=== PATIENT | female | born 1955 | race African-American/Black ===

== ENCOUNTER 2019-09-19 11:48 | HOS | payer OTHER, SELFPAY ==
--- NOTE | 2019-09-19 11:40 | ADMGEN ---
This patient, Brenda Ortez, was admitted to Medical Room 341-01. Patient/family oriented to hospital policies and general routines including ID bracelet, bed and alarms, visiting hours, pain management, procedures, bathroom and other care routines, personal items, smoking policy, room service/diet, and visiting hours. Valuables list has been completed. Information on how to activate the Rapid Response Team has been discussed. Patient/Family are encouraged to report perceived risks to care and to ask questions if they do not understand what they are told or what they should do.
--- NOTE | 2019-09-19 12:05 | PM.IMHP ---
H&P: HPI History of Present Illness Chief complaint: Cerical Cancer Narrative: Brenda Ortez is a 63 year old female who is on hospice for metastatic cervical cancer. She was diagnosed with cervical cancer in 2016. Underwent surgical therapy at least twice. Also had a bowel resection for bowel obstruction related to prior surgeries. She has been at home on hospice receiving 16 mg of Dilaudid every hour as needed and 40 mg of morphine every hour as needed. She has a large presacral decubitus. She is weak and bedbound. Over the last several days her pain is begun uncontrolled intolerable. She was taking methadone 5mg every 8 hours, but has been unable to swallow that since yesterday. her morphine is liquid and the daughter has been crushing the dilaudid. Pain is deep, aching, severe, incapacitating. Review of Systems Review of Systems: ROS unobtainable: Yes unobtainable due to medical condition PMFSH Past Medical History Medical History (Updated 09/19/19 @ 12:24 by Manjit Dudley MD) Bone metastases Primary cervical cancer with metastasis to other site Surgical History Surgical History (Updated 09/19/19 @ 12:18 by Manjit Dudley MD) H/O exploratory laparotomy History of hysterectomy for cancer for bowel obstruction Family History Family History (Updated 09/19/19 @ 12:19 by Manjit Dudley MD) Father No problems noted. Mother No problems noted. Sibling Hypertension Social History Social History (Updated 09/19/19 @ 12:21 by Manjit Dudley MD) Social History: Resides with daughter. Additional smoking assessment comments: Nonsmoker Alcohol use details: Nondrinker Living arrangements: with family Occupation/Education: retired Exam Narrative: Exam Narrative: GENERAL: Cachectic elderly female who appears older than her stated age of 63. Crying out and fidgeting in her hospital bed. HEENT: Pupils small and sluggishly reactive, sclera nonicteric, pharyngeal mucosa pink and intact NECK: No JVD, adenopathy, or thyromegaly CHEST: Clear to auscultation. Tachypneic. HEART: NL S1/S2, regular, no murmur ABDOMEN: BS+, soft, nontender, scaphoid, no mass, no bruits EXTREMITIES: No cyanosis, edema, or clubbing NEUROLOGIC: CN intact and symmetric to inspection. MUSCULOSKELETAL: Tone and strength symmetric. PSYCH: Alert. Confused. Oriented to person. Assessment and Plan Assessment and plan (1) Palliative care by specialist: Code(s): Z51.5 - Encounter for palliative care Status: Acute Assessment and Plan: Requires general inpatient status due to failure of outpatient therapy Hydromorphone 4 mg hourly continuous IV infusion Hydromorphone 4 mg hourly as needed for breakthrough pain Toradol 30 mg IM x1 then 15 mg IV every 6 hours scheduled Dexamethasone 4 mg IV every 6 hours scheduled Lorazepam 1 mg IV Q 6 hours as needed for anxiety Prochlorperazine 10 mg IV q.6 hours p.r.n. nausea Glycopyrrolate 0.1 mg IV every 6 hours as needed for secretions Bowel regimen (2) Primary cervical cancer with metastasis to other site: Code(s): C53.9 - Malignant neoplasm of cervix uteri, unspecified Status: Acute (3) Bone metastases: Code(s): C79.51 - Secondary malignant neoplasm of bone Status: Acute (4) Decubital ulcer: Qualifiers: Pressure injury location: sacral region Pressure injury stage: unspecified pressure injury stage Qualified Code(s): L89.159 - Pressure ulcer of sacral region, unspecified stage Code(s): L89.90 - Pressure ulcer of unspecified site, unspecified stage Status: Acute Assessment and Plan: Mepilex silver gel Turn and reposition every 2 hours
[2019-09-19] MEDS: KETOROLAC 30 MG/ML VIAL (*BKC) IM (12:07)
[2019-09-19] MEDS: LORAZEPAM INJ 2 MG/ML VIAL 1 MG IV PUSH ×3 (12:25→21:45)
[2019-09-19 12:32] VITALS: BMI 14.2
[2019-09-19] MEDS: HYDROMORPHONE HCL 2 MG/ML VIAL 4 MG IV PUSH (12:56)
[2019-09-19 14:00] VITALS: BP 163/106; PULSE 92; RESP 12; TEMP 36.7; O2SAT 94
[2019-09-19] MEDS: HYDROMORPHONE HCL 2 MG/ML VIAL 6 MG IV PUSH ×2 (14:28→15:35)
[2019-09-19] MEDS: SILVERGEL (ELTA) 45 ML 1 APPLIC TOPICAL (14:30)
[2019-09-19] MEDS: HYDROMORPHONE HCL 1 MG/ML INJ 2 MG IV PUSH (15:56)
[2019-09-19] MEDS: KETOROLAC 15 MG/ML VIAL (*BKC) IV PUSH ×2 (17:32→23:27)
[2019-09-19] MEDS: DEXAMETHASONE SOD PHOS INJ 4 MG/ML VIAL IV PUSH ×2 (17:33→23:29)
[2019-09-19] MEDS: HYDROMORPHONE HCL 2 MG/ML VIAL 12 MG IV PUSH ×4 (18:45→23:27)
[2019-09-19 20:07] VITALS: BP 175/106; PULSE 96; RESP 16; TEMP 36.6; O2SAT 100
[2019-09-19 20:31] VITALS: PULSE 96; RESP 16; O2SAT 100
[2019-09-19] MEDS: PROCHLORPERAZINE EDISYLATE 10 MG/2 ML VIAL IV PUSH (21:45)
[2019-09-20] MEDS: HYDROMORPHONE HCL 2 MG/ML VIAL 12 MG IV PUSH ×6 (01:08→13:01)
[2019-09-20] MEDS: LORAZEPAM INJ 2 MG/ML VIAL 1 MG IV PUSH ×4 (02:29→19:01)
[2019-09-20] MEDS: KETOROLAC 15 MG/ML VIAL (*BKC) IV PUSH ×3 (04:59→17:22)
[2019-09-20] MEDS: DEXAMETHASONE SOD PHOS INJ 4 MG/ML VIAL IV PUSH ×3 (04:59→17:22)
[2019-09-20 09:34] VITALS: BP 175/103; PULSE 92; RESP 16; TEMP 36.4; O2SAT 100
--- NOTE | 2019-09-20 17:50 | PM.IMPN ---
Progress Note: A&P Assessment and Plan (1) Palliative care by specialist: Code(s): Z51.5 - Encounter for palliative care Status: Acute Assessment and Plan: Requires general inpatient status due to failure of outpatient therapy Hydromorphone 16 mg hourly continuous IV infusion Hydromorphone 16 mg hourly as needed for breakthrough pain Toradol 15 mg IV every 6 hours scheduled Dexamethasone 4 mg IV every 6 hours scheduled Lorazepam 1 mg IV Q 6 hours as needed for anxiety Prochlorperazine 10 mg IV q.6 hours p.r.n. nausea Glycopyrrolate 0.1 mg IV every 6 hours as needed for secretions Bowel regimen Plan to transition to liquid methadone, nsaid, steroid, and prn hydromorphone PO, but need to check with hospice pharmacy, re: compounding appropriate concentrations. Daily morphine equivalent is 7680mg, roughly equivalent to 256mg methadone. PO breakthrough hydromorphone dose will be 64mg. (2) Primary cervical cancer with metastasis to other site: Code(s): C53.9 - Malignant neoplasm of cervix uteri, unspecified Status: Acute (3) Bone metastases: Code(s): C79.51 - Secondary malignant neoplasm of bone Status: Acute (4) Decubital ulcer: Qualifiers: Pressure injury location: sacral region Pressure injury stage: unspecified pressure injury stage Qualified Code(s): L89.159 - Pressure ulcer of sacral region, unspecified stage Code(s): L89.90 - Pressure ulcer of unspecified site, unspecified stage Status: Acute Assessment and Plan: Mepilex silver gel Turn and reposition every 2 hours Subjective Date/time seen: 09/20/19 17:30 Interval history: Admitted 09/18 for pain control. Has metastatic cervical cancer. Pain 3 or below since hydromorphone drip was increased to 16mg/hr earlier today. Review of Systems Review of Systems: All systems reviewed & are unremarkable except as noted in HPI and below Exam Narrative: Exam Narrative: GENERAL: Cachectic elderly female who appears older than her stated age of 63. Crying out and fidgeting in her hospital bed. HEENT: Pupils small and sluggishly reactive, sclera nonicteric, pharyngeal mucosa pink and intact NECK: No JVD, adenopathy, or thyromegaly CHEST: Clear to auscultation. Tachypneic. HEART: NL S1/S2, regular, no murmur ABDOMEN: BS+, soft, nontender, scaphoid, no mass, no bruits EXTREMITIES: No cyanosis, edema, or clubbing NEUROLOGIC: CN intact and symmetric to inspection. MUSCULOSKELETAL: Tone and strength symmetric. PSYCH: Alert. Oriented to person, place, time. Objective Data Vital Signs Vital Signs: Vital Signs - 24 hr 09/19/19 20:07 09/19/19 20:31 09/20/19 09:34 Temperature 97.9 F 97.6 F Pulse Rate 96 96 92 Respiratory Rate 16 16 16 Blood Pressure 175/106 H 175/103 H Pulse Oximetry 100 100 100 Intake/Output Intake/Output: Intake & Output 09/17/19 09/18/19 09/19/19 09/20/19 23:59 23:59 23:59 23:59 Intake Total 100 565 Balance 100 565 Meds/Results Medications: Active Medications Generic Name Dose Route Start Last Admin Trade Name Freq PRN Reason Stop Dose Admin Acetaminophen 650 mg 09/19/19 12:06 Tylenol Suppository RECTAL Q6H PRN Mild Pain (1-3) or Fever Artificial Tears 1 drop 09/19/19 12:06 Artificial Tears EACH EYE Q4H PRN Dry Eye(s) Bisacodyl 10 mg 09/19/19 12:26 Dulcolax Suppository RECTAL QAM PRN Constipation Dexamethasone Sodium Phosphate 4 mg 09/19/19 18:00 09/20/19 17:22 Decadron 4 Mg/Ml Inj IV PUSH 4 mg Q6HR KOBY Administration Glycopyrrolate 0.1 mg 09/19/19 12:26 Robinul Inj IV PUSH Q6H PRN Secretions Hydromorphone HCl 16 mg 09/20/19 13:13 Dilaudid Inj IV PUSH Q1H PRN Pain Rated 7-10 Hydromorphone HCl 50 mg/ 100 mls @ 32 mls/hr 09/19/19 13:00 09/20/19 15:30 Sodium Chloride IV CONT 16 mg/hr .Q3H8M KOBY 32 mls/hr Administration 16 MG/HR
[2019-09-20] MEDS: HYDROMORPHONE HCL 2 MG/ML VIAL 16 MG IV PUSH ×3 (19:02→22:54)
[2019-09-20 22:45] VITALS: PULSE 90; RESP 17; O2SAT 99
[2019-09-20 22:50] VITALS: BP 158/97; PULSE 90; RESP 17; TEMP 36.3; O2SAT 99
[2019-09-21] MEDS: KETOROLAC 15 MG/ML VIAL (*BKC) IV PUSH ×5 (00:56→23:56)
[2019-09-21] MEDS: DEXAMETHASONE SOD PHOS INJ 4 MG/ML VIAL IV PUSH ×4 (00:56→20:38)
[2019-09-21] MEDS: LORAZEPAM INJ 2 MG/ML VIAL 1 MG IV PUSH ×3 (04:14→14:33)
[2019-09-21] MEDS: HYDROMORPHONE HCL 2 MG/ML VIAL 16 MG IV PUSH ×6 (04:15→18:53)
[2019-09-21 09:18] VITALS: O2SAT 99
[2019-09-21 14:37] VITALS: BP 169/75; PULSE 91; RESP 16; TEMP 36.8; O2SAT 99
--- NOTE | 2019-09-21 14:49 | P.PNIM_ITS ---
Progress Note: A&P Assessment and Plan (1) Palliative care by specialist: Code(s): Z51.5 - Encounter for palliative care Status: Acute Assessment and Plan: * Requires general inpatient status due to failure of outpatient therapy * Hydromorphone 16 mg hourly continuous IV infusion * Hydromorphone 16 mg hourly as needed for breakthrough pain * Toradol 15 mg IV every 6 hours scheduled * Dexamethasone 4 mg IV every 6 hours scheduled * Lorazepam 1 mg IV Q 6 hours as needed for anxiety * Prochlorperazine 10 mg IV q.6 hours p.r.n. nausea * Glycopyrrolate 0.1 mg IV every 6 hours as needed for secretions * Bowel regimen * Plan to transition to liquid methadone, nsaid, steroid, and prn hydromorphone PO * [facility] hosp[facility] pharmacy, will deliver meds by tomorrow PM. * Daily morphine equivalent is 7680mg, roughly equivalent to 256mg methadone. * Methadone will be 50:1 concentrate 80mg PO q 8 hours * PO breakthrough hydromorphone dose will be 50:1 concentrate 60mg q 2 hours prn * Ibuprofen 400mg/5ml 800mg q 8 hrs * Dexamethasone 4mg PO BID * Senna bid (2) Primary cervical cancer with metastasis to other site: Code(s): C53.9 - Malignant neoplasm of cervix uteri, unspecified Status: Acute (3) Bone metastases: Code(s): C79.51 - Secondary malignant neoplasm of bone Status: Acute (4) Decubital ulcer: Qualifiers: Pressure injury location: sacral region Pressure injury stage: unspecified pressure injury stage Qualified Code(s): L89.159 - Pressure ulcer of sacral region, unspecified stage Code(s): L89.90 - Pressure ulcer of unspecified site, unspecified stage Status: Acute Assessment and Plan: * Mepilex silver gel * Turn and reposition every 2 hours Subjective Date/time seen: 09/21/19 14:30 Interval history: Admitted 09/18 for pain control. Has metastatic cervical cancer. Pain 3 or below since hydromorphone drip was increased to 16mg/hr 09/19. Generalized, aching, musculoskeletal. Appetite improved. No GI upset. Constipated. Review of Systems Review of Systems: All systems reviewed & are unremarkable except as noted in HPI and below Exam Narrative: Exam Narrative: GENERAL: Cachectic elderly female who appears older than her stated age of 63. Crying out and fidgeting in her hospital bed. HEENT: Pupils small and sluggishly reactive, sclera nonicteric, pharyngeal mucosa pink and intact NECK: No JVD, adenopathy, or thyromegaly CHEST: Clear to auscultation. Tachypneic. HEART: NL S1/S2, regular, no murmur ABDOMEN: BS+, soft, nontender, scaphoid, no mass, no bruits EXTREMITIES: No cyanosis, edema, or clubbing NEUROLOGIC: CN intact and symmetric to inspection. MUSCULOSKELETAL: Tone and strength symmetric. PSYCH: Alert. Oriented to person, place, time. Objective Data Vital Signs Vital Signs: Vital Signs - 24 hr 09/20/19 22:45 09/20/19 22:50 09/21/19 09:18 Temperature 97.3 F L Pulse Rate 90 90 Respiratory Rate 17 17 Blood Pressure 158/97 H Pulse Oximetry 99 99 99 09/21/19 14:37 Temperature 98.2 F Pulse Rate 91 Respiratory Rate 16 Blood Pressure 169/75 H Pulse Oximetry 99 Intake/Output Intake/Output: Intake & Output 09/18/19 09/19/19 09/20/19 09/21/19 23:59 23:59 23:59 23:59 Intake Total 270 108 3614 Balance 883 543 4674
--- NOTE | 2019-09-21 14:49 | PM.IMPN ---
Progress Note: A&P Assessment and Plan (1) Palliative care by specialist: Code(s): Z51.5 - Encounter for palliative care Status: Acute Assessment and Plan: Requires general inpatient status due to failure of outpatient therapy Hydromorphone 16 mg hourly continuous IV infusion Hydromorphone 16 mg hourly as needed for breakthrough pain Toradol 15 mg IV every 6 hours scheduled Dexamethasone 4 mg IV every 6 hours scheduled Lorazepam 1 mg IV Q 6 hours as needed for anxiety Prochlorperazine 10 mg IV q.6 hours p.r.n. nausea Glycopyrrolate 0.1 mg IV every 6 hours as needed for secretions Bowel regimen Plan to transition to liquid methadone, nsaid, steroid, and prn hydromorphone PO [facility], hospice pharmacy, will deliver meds by tomorrow PM. Daily morphine equivalent is 7680mg, roughly equivalent to 256mg methadone. Methadone will be 50:1 concentrate 80mg PO q 8 hours PO breakthrough hydromorphone dose will be 50:1 concentrate 60mg q 2 hours prn Ibuprofen 400mg/5ml 800mg q 8 hrs Dexamethasone 4mg PO BID Senna bid (2) Primary cervical cancer with metastasis to other site: Code(s): C53.9 - Malignant neoplasm of cervix uteri, unspecified Status: Acute (3) Bone metastases: Code(s): C79.51 - Secondary malignant neoplasm of bone Status: Acute (4) Decubital ulcer: Qualifiers: Pressure injury location: sacral region Pressure injury stage: unspecified pressure injury stage Qualified Code(s): L89.159 - Pressure ulcer of sacral region, unspecified stage Code(s): L89.90 - Pressure ulcer of unspecified site, unspecified stage Status: Acute Assessment and Plan: Mepilex silver gel Turn and reposition every 2 hours Subjective Date/time seen: 09/21/19 14:30 Interval history: Admitted 09/18 for pain control. Has metastatic cervical cancer. Pain 3 or below since hydromorphone drip was increased to 16mg/hr 09/19. Generalized, aching, musculoskeletal. Appetite improved. No GI upset. Constipated. Review of Systems Review of Systems: All systems reviewed & are unremarkable except as noted in HPI and below Exam Narrative: Exam Narrative: GENERAL: Cachectic elderly female who appears older than her stated age of 63. Crying out and fidgeting in her hospital bed. HEENT: Pupils small and sluggishly reactive, sclera nonicteric, pharyngeal mucosa pink and intact NECK: No JVD, adenopathy, or thyromegaly CHEST: Clear to auscultation. Tachypneic. HEART: NL S1/S2, regular, no murmur ABDOMEN: BS+, soft, nontender, scaphoid, no mass, no bruits EXTREMITIES: No cyanosis, edema, or clubbing NEUROLOGIC: CN intact and symmetric to inspection. MUSCULOSKELETAL: Tone and strength symmetric. PSYCH: Alert. Oriented to person, place, time. Objective Data Vital Signs Vital Signs: Vital Signs - 24 hr 09/20/19 22:45 09/20/19 22:50 09/21/19 09:18 Temperature 97.3 F L Pulse Rate 90 90 Respiratory Rate 17 17 Blood Pressure 158/97 H Pulse Oximetry 99 99 99 09/21/19 14:37 Temperature 98.2 F Pulse Rate 91 Respiratory Rate 16 Blood Pressure 169/75 H Pulse Oximetry 99 Intake/Output Intake/Output: Intake & Output 09/18/19 09/19/19 09/20/19 09/21/19 23:59 23:59 23:59 23:59 Intake Total 115 299 3714 Balance 508 444 1608 Meds/Results Medications: Active Medications Generic Name Dose Route Start Last Admin Trade Name Freq PRN Reason Stop Dose Admin Acetaminophen 650 mg 09/19/19 12:06 Tylenol Suppository RECTAL Q6H PRN Mild Pain (1-3) or Fever Artificial Tears 1 drop 09/19/19 12:06 Artificial Tears EACH EYE Q4H PRN Dry Eye(s) Bisacodyl 10 mg 09/19/19 12:26 Dulcolax Suppository RECTAL QAM PRN Constipation Dexamethasone Sodium Phosphate 4 mg 09/19/19 18:00 09/21/19 12:40 Decadron 4 Mg/Ml Inj IV PUSH 4 mg Q6HR KOBY Administration Glycopyrrolate 0.1 mg 09/19/19 12:26 Robinul Inj I
[2019-09-21] MEDS: SENNOSIDES 8.8 MG/5 ML SYRUP PO (20:47)
[2019-09-21 20:53] VITALS: BP 166/79; PULSE 83; RESP 16; TEMP 36.6; O2SAT 98
[2019-09-22] MEDS: DEXAMETHASONE SOD PHOS INJ 4 MG/ML VIAL IV PUSH ×4 (00:01→17:23)
[2019-09-22] MEDS: HYDROMORPHONE HCL 2 MG/ML VIAL 16 MG IV PUSH ×9 (01:54→19:16)
[2019-09-22] MEDS: LORAZEPAM INJ 2 MG/ML VIAL 1 MG IV PUSH ×3 (05:58→13:57)
[2019-09-22] MEDS: KETOROLAC 15 MG/ML VIAL (*BKC) IV PUSH ×3 (06:00→17:23)
[2019-09-22 08:25] VITALS: O2SAT 98
[2019-09-22] MEDS: SENNOSIDES 8.8 MG/5 ML SYRUP PO ×2 (09:21→17:23)
--- NOTE | 2019-09-22 13:49 | P.PNIM_ITS ---
Progress Note: A&P Assessment and Plan (1) Palliative care by specialist: Code(s): Z51.5 - Encounter for palliative care Status: Acute Assessment and Plan: * Requires general inpatient status due to failure of outpatient therapy * Although most of pain seems musculoskeletal, 09/21 c/o of burning and stabbing suggest neuropathic component * 09/21 added gabapentin 300mg q 8 hours * Methadone 80mg PO q 8 hours * Hydromorphone 16 mg hourly as needed for breakthrough pain * Toradol 15 mg IV every 6 hours scheduled * Dexamethasone 4 mg IV every 6 hours scheduled * Lorazepam 2 mg IV Q 2 hours as needed for anxiety * Prochlorperazine 10 mg IV q.6 hours p.r.n. nausea * Glycopyrrolate 0.1 mg IV every 6 hours as needed for secretions * Bowel regimen * Plan to transition to liquid methadone, nsaid, steroid, and prn hydromorphone PO upon discharge to home * [facility], will deliver meds by tomorrow PM. * Daily morphine equivalent is 7680mg, roughly equivalent to 256mg methadone. * Methadone will be 50:1 concentrate 80mg PO q 8 hours * PO breakthrough hydromorphone dose will be 50:1 concentrate 60mg q 2 hours prn * Ibuprofen 400mg/5ml 800mg q 8 hrs * Dexamethasone 4mg PO BID * Senna bid (2) Primary cervical cancer with metastasis to other site: Code(s): C53.9 - Malignant neoplasm of cervix uteri, unspecified Status: Acute (3) Bone metastases: Code(s): C79.51 - Secondary malignant neoplasm of bone Status: Acute (4) Decubital ulcer: Qualifiers: Pressure injury location: sacral region Pressure injury stage: uns pecified pressure injury stage Qualified Code(s): L89.159 - Pressure ulcer of sacral region, unspecified stage Code(s): L89.90 - Pressure ulcer of unspecified site, unspecified stage Status: Acute Assessment and Plan: * Mepilex silver gel * Turn and reposition every 2 hours (5) Depression with anxiety: Code(s): F41.8 - Other specified anxiety disorders Status: Acute Assessment and Plan: * She admits to use of antidepressants in the past * Now feels anxious and overwhelmed * 09/21 added mirtazapine * 09/21 scheduled po lorazepam 2mg q 4h, continue prn IV Subjective Date/time seen: 09/22/19 13:49 Interval history: Admitted 09/18 for pain control. Has metastatic cervical cancer. Pain worse after stopping hydromorphone drip. 02/22 Burning. Stabbing. Left thigh to leg. Appetite still good when not in pain. Constipated. Review of Systems Review of Systems: All systems reviewed & are unremarkable except as noted in HPI and below Exam Narrative: Exam Narrative: GENERAL: Cachectic elderly female who appears older than her stated age of 63. Crying out and fidgeting in her hospital bed. HEENT: Pupils small and sluggishly reactive, sclera nonicteric, pharyngeal mucosa pink and intact NECK: No JVD, adenopathy, or thyromegaly CHEST: Clear to auscultation. Tachypneic. HEART: NL S1/S2, regular, no murmur ABDOMEN: BS+, soft, nontender, scaphoid, no mass, no bruits EXTREMITIES: No cyanosis, edema, or clubbing NEUROLOGIC: CN intact and symmetric to inspection. MUSCULOSKELETAL: Tone and strength symmetric. PSYCH: Alert. Oriented to person, place, time. Anxious. Objective Data Vital Signs Vital Signs: Vital Signs - 24 hr 09/21/19 14:37 09/21/19 20:53 09/22/19 08:25 Temperature 98.2 F 98 F Pulse Rate 91 83 Respiratory Rate 16 16 Blood Pressure 169/75 H 166/79 H
--- NOTE | 2019-09-22 13:49 | PM.IMPN ---
Progress Note: A&P Assessment and Plan (1) Palliative care by specialist: Code(s): Z51.5 - Encounter for palliative care Status: Acute Assessment and Plan: Requires general inpatient status due to failure of outpatient therapy Although most of pain seems musculoskeletal, 09/21 c/o of burning and stabbing suggest neuropathic component 09/21 added gabapentin 300mg q 8 hours Methadone 80mg PO q 8 hours Hydromorphone 16 mg hourly as needed for breakthrough pain Toradol 15 mg IV every 6 hours scheduled Dexamethasone 4 mg IV every 6 hours scheduled Lorazepam 2 mg IV Q 2 hours as needed for anxiety Prochlorperazine 10 mg IV q.6 hours p.r.n. nausea Glycopyrrolate 0.1 mg IV every 6 hours as needed for secretions Bowel regimen Plan to transition to liquid methadone, nsaid, steroid, and prn hydromorphone PO upon discharge to home [facility] hospice pharmacy, will deliver meds by tomorrow PM. Daily morphine equivalent is 7680mg, roughly equivalent to 256mg methadone. Methadone will be 50:1 concentrate 80mg PO q 8 hours PO breakthrough hydromorphone dose will be 50:1 concentrate 60mg q 2 hours prn Ibuprofen 400mg/5ml 800mg q 8 hrs Dexamethasone 4mg PO BID Senna bid (2) Primary cervical cancer with metastasis to other site: Code(s): C53.9 - Malignant neoplasm of cervix uteri, unspecified Status: Acute (3) Bone metastases: Code(s): C79.51 - Secondary malignant neoplasm of bone Status: Acute (4) Decubital ulcer: Qualifiers: Pressure injury location: sacral region Pressure injury stage: unspecified pressure injury stage Qualified Code(s): L89.159 - Pressure ulcer of sacral region, unspecified stage Code(s): L89.90 - Pressure ulcer of unspecified site, unspecified stage Status: Acute Assessment and Plan: Mepilex silver gel Turn and reposition every 2 hours (5) Depression with anxiety: Code(s): F41.8 - Other specified anxiety disorders Status: Acute Assessment and Plan: She admits to use of antidepressants in the past Now feels anxious and overwhelmed 09/21 added mirtazapine 09/21 scheduled po lorazepam 2mg q 4h, continue prn IV Subjective Date/time seen: 09/22/19 13:49 Interval history: Admitted 09/18 for pain control. Has metastatic cervical cancer. Pain worse after stopping hydromorphone drip. 02/22 Burning. Stabbing. Left thigh to leg. Appetite still good when not in pain. Constipated. Review of Systems Review of Systems: All systems reviewed & are unremarkable except as noted in HPI and below Exam Narrative: Exam Narrative: GENERAL: Cachectic elderly female who appears older than her stated age of 63. Crying out and fidgeting in her hospital bed. HEENT: Pupils small and sluggishly reactive, sclera nonicteric, pharyngeal mucosa pink and intact NECK: No JVD, adenopathy, or thyromegaly CHEST: Clear to auscultation. Tachypneic. HEART: NL S1/S2, regular, no murmur ABDOMEN: BS+, soft, nontender, scaphoid, no mass, no bruits EXTREMITIES: No cyanosis, edema, or clubbing NEUROLOGIC: CN intact and symmetric to inspection. MUSCULOSKELETAL: Tone and strength symmetric. PSYCH: Alert. Oriented to person, place, time. Anxious. Objective Data Vital Signs Vital Signs: Vital Signs - 24 hr 09/21/19 14:37 09/21/19 20:53 09/22/19 08:25 Temperature 98.2 F 98 F Pulse Rate 91 83 Respiratory Rate 16 16 Blood Pressure 169/75 H 166/79 H Pulse Oximetry 99 98 98 Intake/Output Intake/Output: Intake & Output 09/19/19 09/20/19 09/21/19 09/22/19 23:59 23:59 23:59 23:59 Intake Total 505 749 9705 560 Balance 826 849 3896 560 Meds/Results Medications: Active Medications Generic Name Dose Route Start Last Admin Trade Name Freq PRN Reason Stop Dose Admin Acetaminophen 650 mg 09/19/19 12:06 Tylenol Suppository RECTAL Q6H PRN Mild Pain (1-3) or Fever Artificial Tears 1 drop 09/19/19 12:06 Artific
[2019-09-22 14:32] VITALS: BP 168/97; PULSE 89; RESP 16; TEMP 36.8; O2SAT 100
[2019-09-22] MEDS: GABAPENTIN 300 MG CAPSULE PO (14:54)
[2019-09-22] MEDS: LORAZEPAM 1 MG TABLET 2 MG PO (17:22)
[2019-09-22 20:00] VITALS: PULSE 89; RESP 16; O2SAT 100
[2019-09-23] MEDS: KETOROLAC 15 MG/ML VIAL (*BKC) IV PUSH ×3 (01:26→11:36)
[2019-09-23] MEDS: LORAZEPAM 1 MG TABLET 2 MG PO ×3 (01:27→13:39)
[2019-09-23] MEDS: DEXAMETHASONE SOD PHOS INJ 4 MG/ML VIAL IV PUSH ×3 (01:28→11:37)
[2019-09-23] MEDS: GABAPENTIN 300 MG CAPSULE PO ×3 (01:29→13:40)
[2019-09-23] MEDS: MIRTAZAPINE SOLTAB 15 MG TAB.DISPER PO (01:29)
[2019-09-23 01:36] VITALS: BP 160/122; PULSE 131; RESP 16; TEMP 36.2; O2SAT 100
--- NOTE | 2019-09-23 07:30 | PC.NURSE ---
0600 medications not given due to aptient not waking up. Appears to be resting comfortably.
[2019-09-23] MEDS: SENNOSIDES 8.8 MG/5 ML SYRUP PO (08:19)
[2019-09-23] MEDS: HYDROMORPHONE HCL 2 MG/ML VIAL 16 MG IV PUSH (09:48)
--- NOTE | 2019-09-23 10:43 | P.DS_ITS ---
DS: Diagnosis Admitting Diagnosis Admitting Diagnosis: Encounter for palliative care Discharge Diagnosis (1) Palliative care by specialist: Code(s): Z51.5 - Encounter for palliative care Status: Acute Assessment and Plan: * Requires general inpatient status due to failure of outpatient therapy * Although most of pain seems musculoskeletal, 09/21 c/o of burning and stabbing suggest neuropathic component * 09/21 added gabapentin 300mg q 8 hours * Methadone 80mg PO q 8 hours * Hydromorphone 16 mg hourly as needed for breakthrough pain * Toradol 15 mg IV every 6 hours scheduled * Dexamethasone 4 mg IV every 6 hours scheduled * Lorazepam 2 mg IV Q 2 hours as needed for anxiety * Prochlorperazine 10 mg IV q.6 hours p.r.n. nausea * Glycopyrrolate 0.1 mg IV every 6 hours as needed for secretions * Bowel regimen * Plan to transition to liquid methadone, nsaid, steroid, and prn hydromorphone PO upon discharge to home * [facility] by tomorrow PM. * Daily morphine equivalent is 7680mg, roughly equivalent to 256mg methadone. * Methadone will be 50:1 concentrate 80mg PO q 8 hours * PO breakthrough hydromorphone dose will be 50:1 concentrate 60mg q 2 hours prn * Ibuprofen 400mg/5ml 800mg q 8 hrs * Dexamethasone 4mg PO BID * Senna bid (2) Primary cervical cancer with metastasis to other site: Code(s): C53.9 - Malignant neoplasm of cervix uteri, unspecified Status: Acute (3) Bone metastases: Code(s): C79.51 - Secondary malignant neoplasm of bone Status: Acute (4) Decubital ulcer: Qualifiers: Pressure injury location: sacral region Pressure injury stage: unspecified pressure injury stage Qualified Code(s): L89.159 - Pressure ulcer of sacral region, unspecified stage Code(s): L89.90 - Pressure ulcer of unspecified site, unspecified stage Status: Acute Assessment and Plan: * Mepilex silver gel * Turn and reposition every 2 hours (5) Depression with anxiety: Code(s): F41.8 - Other specified anxiety disorders Status: Acute Assessment and Plan: * She admits to use of antidepressants in the past * Now feels anxious and overwhelmed * 09/21 added mirtazapine * 09/21 scheduled po lorazepam 2mg q 4h, continue prn IV DS: Summary Hospital Course Reason for hospitalization: Uncontrolled pain Hospital Course: Admitted to inpatient hospice service for uncontrolled pain. Medications were titrated to comfort. Patient tolerated well. Was eating and alert. Discharged to home with family. I discussed with her daughter the need to give medications on schedule. Time Spent with Patient Time attestation: Total time spent providing and/or coordinating discharge services: 45 min Time spent: Greater than 30 minutes Exam Narrative: Exam Narrative: GENERAL: Cachectic elderly female who appears older than her stated age of 63. Crying out and fidgeting in her hospital bed. HEENT: Pupils small and sluggishly reactive, sclera nonicteric, pharyngeal mucosa pink and intact NECK: No JVD, adenopathy, or thyromegaly CHEST: Clear to auscultation. Tachypneic. HEART: NL S1/S2, regular, no murmur ABDOMEN: BS+, soft, nontender, scaphoid, no mass, no bruits EXTREMITIES: No cyanosis, edema, or clubbing NEUROLOGIC: CN intact and symmetric to inspection. MUSCULOSKELETAL: Tone and strength symmetric. PSYCH: Alert. Oriented to person, place, time. Anxious. Discharge Plan Discharge Discharging Clinician: Manjit Dudley Patient Disposition: Hospice - Home Activity: as t
--- NOTE | 2019-09-23 10:43 | PM.DS ---
DS: Diagnosis Admitting Diagnosis Admitting Diagnosis: Encounter for palliative care Discharge Diagnosis (1) Palliative care by specialist: Code(s): Z51.5 - Encounter for palliative care Status: Acute Assessment and Plan: Requires general inpatient status due to failure of outpatient therapy Although most of pain seems musculoskeletal, 09/21 c/o of burning and stabbing suggest neuropathic component 09/21 added gabapentin 300mg q 8 hours Methadone 80mg PO q 8 hours Hydromorphone 16 mg hourly as needed for breakthrough pain Toradol 15 mg IV every 6 hours scheduled Dexamethasone 4 mg IV every 6 hours scheduled Lorazepam 2 mg IV Q 2 hours as needed for anxiety Prochlorperazine 10 mg IV q.6 hours p.r.n. nausea Glycopyrrolate 0.1 mg IV every 6 hours as needed for secretions Bowel regimen Plan to transition to liquid methadone, nsaid, steroid, and prn hydromorphone PO upon discharge to home [facility], hospice pharmacy, will deliver meds by tomorrow PM. Daily morphine equivalent is 7680mg, roughly equivalent to 256mg methadone. Methadone will be 50:1 concentrate 80mg PO q 8 hours PO breakthrough hydromorphone dose will be 50:1 concentrate 60mg q 2 hours prn Ibuprofen 400mg/5ml 800mg q 8 hrs Dexamethasone 4mg PO BID Senna bid (2) Primary cervical cancer with metastasis to other site: Code(s): C53.9 - Malignant neoplasm of cervix uteri, unspecified Status: Acute (3) Bone metastases: Code(s): C79.51 - Secondary malignant neoplasm of bone Status: Acute (4) Decubital ulcer: Qualifiers: Pressure injury location: sacral region Pressure injury stage: unspecified pressure injury stage Qualified Code(s): L89.159 - Pressure ulcer of sacral region, unspecified stage Code(s): L89.90 - Pressure ulcer of unspecified site, unspecified stage Status: Acute Assessment and Plan: Mepilex silver gel Turn and reposition every 2 hours (5) Depression with anxiety: Code(s): F41.8 - Other specified anxiety disorders Status: Acute Assessment and Plan: She admits to use of antidepressants in the past Now feels anxious and overwhelmed 09/21 added mirtazapine 09/21 scheduled po lorazepam 2mg q 4h, continue prn IV DS: Summary Hospital Course Reason for hospitalization: Uncontrolled pain Hospital Course: Admitted to inpatient hospice service for uncontrolled pain. Medications were titrated to comfort. Patient tolerated well. Was eating and alert. Discharged to home with family. I discussed with her daughter the need to give medications on schedule. Time Spent with Patient Time attestation: Total time spent providing and/or coordinating discharge services: 45 min Time spent: Greater than 30 minutes Exam Narrative: Exam Narrative: GENERAL: Cachectic elderly female who appears older than her stated age of 63. Crying out and fidgeting in her hospital bed. HEENT: Pupils small and sluggishly reactive, sclera nonicteric, pharyngeal mucosa pink and intact NECK: No JVD, adenopathy, or thyromegaly CHEST: Clear to auscultation. Tachypneic. HEART: NL S1/S2, regular, no murmur ABDOMEN: BS+, soft, nontender, scaphoid, no mass, no bruits EXTREMITIES: No cyanosis, edema, or clubbing NEUROLOGIC: CN intact and symmetric to inspection. MUSCULOSKELETAL: Tone and strength symmetric. PSYCH: Alert. Oriented to person, place, time. Anxious. Discharge Plan Discharge Discharging Clinician: Manjit Dudley Patient Disposition: Hospice - Home Activity: as tolerated Diet: as tolerated Wound Care Instructions: other - see discharge instructions Discharge Instructions: Wound Care: Apply silver gel and mepilex daily. Patient Instructions: Pain Management in Older Adults (DC), Hospice Care (GEN), Donis Catheter Placement and Care (DC) Stand Alone Forms: General Discharge Information Discharge Medications: New lorazepam 2 mg tablet See Rx Ins
[2019-09-23] MEDS: SILVERGEL (ELTA) 45 ML 1 APPLIC TOPICAL (11:35)
[2019-09-23 14:35] VITALS: BP 159/102; PULSE 73; RESP 10; TEMP 36.7; O2SAT 100
== END 2019-09-23 16:21 | disposition hospice, home (50) | DRG 948 ==
PROVIDERS: Admitting Provider Internal Medicine; PCP Internal Medicine Adolescent Medicine; Visit Provider Internal Medicine
DX: G89.3 Neoplasm related pain (acute) (chronic) (principal); C79.51 Secondary malignant neoplasm of bone; Z68.1 Body mass index [BMI] 19.9 or less, adult; C53.9 Malignant neoplasm of cervix uteri, unspecified; F41.8 Other specified anxiety disorders; R64 Cachexia; L89.159 Pressure ulcer of sacral region, unspecified stage; Z51.5 Encounter for palliative care
CPT/HCPCS: A9270; J0780; J1100; J1170; J1885; J2060